=== PATIENT | female | born 1945 | race Caucasian/White ===

== ENCOUNTER 2018-05-22 13:09 | Inpatient (IN) | payer OTHER ==
[~2018-05-22] VITALS: Ht 152.4 cm; Wt 64.4 kg
[2018-05-22 14:14] LABS: BASOPHIL % 0.5 % (0-2); PLATELET COUNT 331 x10^3mcL (130-400)
[2018-05-22 14:19] LABS: RED CELL DISTRIBUTION WIDTH 15.8 % (11.5-14.5)
[2018-05-22 14:36] LABS: CALCIUM 8.8 mg/dL (8.5-10.1); CARBON DIOXIDE 27.8 mmol/L (21-32); CHLORIDE SERUM 103 mmol/L (98-107); CREATININE SERUM 0.8 mg/dL (0.6-1.0); GLUCOSE SERUM 119 mg/dL (74-106); POTASSIUM SERUM 3.6 mmol/L (3.5-5.1); SODIUM SERUM 139 mmol/L (136-145)
[2018-05-22 14:41] LABS: ALBUMIN 3.6 g/dL (3.4-5.0); ALKALINE PHOSPHATASE 111 U/L (46-116); ALT/SGPT 30 U/L (14-59); AST/SGOT 17 U/L (15-37); BILIRUBIN TOTAL 0.4 mg/dL (0.20-1.00)
[2018-05-22 14:42] LABS: TOTAL PROTEIN, SERUM 8.4 g/dL (6.4-8.2)
[2018-05-22 18:32] VITALS: BP 129/81
[2018-05-22 18:38] VITALS: Ht 152.4 cm; Wt 64.4 kg
[2018-05-22 19:17] LABS: T3 TOTAL 0.85 ng/mL
[2018-05-22 19:24] LABS: FREE T4 1.08 ng/dL (0.76-1.46); FREE THYROXINE INDEX 3.1 ug/dL (1.4-4.5); T4(THYROXINE) 8.5 ug/dL (4.7-13.3)
[2018-05-22 19:35] LABS: CHOLESTEROL/HDL RATIO 2.8; MAGNESIUM 1.8 mg/dL (1.8-2.4)
[2018-05-22 21:29] VITALS: BP 107/59
[2018-05-22] MEDS ORDERED: IMD60 PO (22:39)
[2018-05-22] MEDS ORDERED: EFFIENT10 M2 PO (22:39)
[2018-05-22] MEDS ORDERED: CELEXA20 MG PO (22:39)
[2018-05-22] MEDS ORDERED: CORE25 PO (22:39)
[2018-05-22] MEDS ORDERED: LIPITOR40 MG PO (22:40)
[2018-05-22] MEDS ORDERED: GOOD SENSE ASPI81 M3 PO (22:41)
[2018-05-23 05:20] VITALS: BP 166/62
[2018-05-23 06:22] LABS: BASOPHIL % 0.5 % (0-2); PLATELET COUNT 337 x10^3mcL (130-400)
[2018-05-23 06:28] LABS: CALCIUM 8.7 mg/dL (8.5-10.1); CARBON DIOXIDE 31.6 mmol/L (21-32); CHLORIDE SERUM 100 mmol/L (98-107); GLUCOSE SERUM 122 mg/dL (74-106); POTASSIUM SERUM 3.8 mmol/L (3.5-5.1); SODIUM SERUM 136 mmol/L (136-145)
[2018-05-23 06:33] LABS: RED CELL DISTRIBUTION WIDTH 16.1 % (11.5-14.5)
[2018-05-23 08:07] VITALS: BP 188/72
[2018-05-23 12:19] VITALS: BP 142/51
[2018-05-23 15:47] LABS: microscopic required? YES; urine erythrocyte 2+ (NEGATIVE)
[2018-05-23 16:09] VITALS: BP 163/63
[2018-05-23 21:10] VITALS: BP 176/62
[2018-05-24 06:05] VITALS: BP 164/60
[2018-05-24 06:17] LABS: CALCIUM 8.7 mg/dL (8.5-10.1); CARBON DIOXIDE 29.9 mmol/L (21-32); CHLORIDE SERUM 105 mmol/L (98-107); CREATININE SERUM 0.9 mg/dL (0.6-1.0); GLUCOSE SERUM 111 mg/dL (74-106); POTASSIUM SERUM 3.6 mmol/L (3.5-5.1); SODIUM SERUM 142 mmol/L (136-145)
[2018-05-24 06:23] LABS: BASOPHIL % 0.4 % (0-2); PLATELET COUNT 296 x10^3mcL (130-400)
[2018-05-24 06:29] LABS: RED CELL DISTRIBUTION WIDTH 15.9 % (11.5-14.5)
[2018-05-24] MEDS ORDERED: CYCLOBENZAPRINE5 MG PO (07:39)
[2018-05-24] MEDS ORDERED: LISINOPRIL40 MG PO (07:40)
[2018-05-24 08:50] VITALS: BP 166/65
[2018-05-24 10:44] VITALS: BP 166/65
[2018-05-24 11:02] VITALS: BP 159/62
[2018-05-24 12:14] VITALS: BP 153/56
== END 2018-05-24 14:14 | disposition home or self-care (01) | DRG 206 ==
LOC: ED 13:09 → DU 16:56
PROVIDERS: Emergency Medicine; ADMIT Internal Medicine
DX: M94.0 Chondrocostal junction syndrome [Tietze] (principal); I16.0 Hypertensive urgency; N20.0 Calculus of kidney; R73.03 Prediabetes; I10 Essential (primary) hypertension; D64.9 Anemia, unspecified; F32.9 Major depressive disorder, single episode, unspecified; E78.5 Hyperlipidemia, unspecified; I25.2 Old myocardial infarction; Z68.28 Body mass index [BMI] 28.0-28.9, adult; Z95.5 Presence of coronary angioplasty implant and graft; K21.9 Gastro-esophageal reflux disease without esophagitis
CPT/HCPCS: 84439; J0360; J1885; J2270; J2405; J7030; Q0092